=== PATIENT | male | born 1935 | race Caucasian/White ===

== ENCOUNTER 2017-04-29 20:54 | Inpatient (IN) | payer MEDICARE ==
[~2017-04-29 20:54] MED LIST: ISOVUE-370 76%-LOCM 1 ML ONE
--- OUTSIDE RECORDS SUMMARY | 2017-04-29 20:58 | XMS | Clinical Summary ---
:1935 Author Organization [facility] Address [address] [place] [address] Phone Care Team Providers Name Role Phone , Primary Care Provider Unavailable Allergies Not on File Current Medications Not on file Active Problems Not on file Social History Tobacco Use Types Packs/Day Years Used Date Never Assessed Sex Assigned at Date Recorded Not on file Last Filed Vital Signs Not on file Plan of Treatment Not on file Results Not on filefrom Last 3 Months
[2017-04-29] MEDS ORDERED: Milk Of Magnesia 30 ML UDCUP ONE (22:25)
[2017-04-29] MEDS ORDERED: Lidocaine Viscous Sol 2% 15 ml UD Cup ONE (22:25)
--- NOTE | 2017-04-29 23:40 | CT ---
ABDOMEN CT WITH CONTRAST PELVIC CT WITH CONTRAST: Comparison: 10-05-16 History: Nausea, vomiting, diarrhea. Technique: Abdomen and pelvic CT is performed with IV contrast. Enteric contrast was not administere d. Coronal reformatted images are submitted for interpretation. FINDINGS: Abdomen CT: Lung bases are clear. Heart size is within normal limits. Coronary calcifications are identified. Th e descending thoracic aorta and abdominal aorta have an overall normal caliber. No specific periaort ic fat stranding. Circumflex left renal vein is noted. Intra and extrahepatic portal vein is patent. 8 mm hypodensity in the liver, too small to characterize. The spleen and pancreas have appropriate e nhancement. 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 There appears to be a nodule associated with the medial limb of the right adrenal gland measuring 1.3 cm. Attenuation coefficien t on the previous CT suggests a benign adenoma. There is persistent fullness of the left adrenal gla nd. Stable complex cyst emanating from the upper pole of the left kidney. Additional smaller left an d right parenchymal hypodensities are noted. There are nonobstructing calcifications in the left randy al pelvis. Bilaterally, no hydronephrosis or significant perinephric fat stranding. Bilaterally, ure ters have a normal caliber. No hydroureter, periatrial fat stranding or ureterolithiasis. There is stranding of the central abdominal mesentery at the level of the third portion and fourth p ortion of the duodenum. There are some mildly prominent adjacent lymph nodes. There is mucosal thick ening involving the third and fourth portion of the duodenum as well as proximal jejunal loops. Ther e are adjacent mildly enlarged lymph nodes, presumed to be reacdtive. A focal enteritis is suspected . No evidence of abscess or perforation. Mid to distal small bowel loops are unremarkable. Ileocecal junction is normal. Normal caliber appendix. Scattered fecal material in a nondistended, nondilated colon. Occasional diverticulum. No diverticulitis. There are nonspecific right periaortic and aortocaval lymph nodes. There appears to be possible sludge and stones in the dependent portion of the gallbladder. No evide nce of cholecystitis. Pelvic CT: Urinary bladder is unremarkable. No pelvic mass, lymphadenopathy, free air or free fluid. Evaluation is limited by beam attenuation artifact due to right hip arthroplasty. There are no osteoblastic or osteolytic lesions. IMPRESSION: 1. Mucosal prominence and adjacent mesenteric inflammation involving the third and fourth portion of the duodenum as well as proximal jejunal loops. A focal enteritis is suspected. No associated obstr uction. 2. Re-demonstrating multiple renal hypodensities. 3. Right adrenal adenoma. Left adrenal hyperplasia. POS: PPP
[2017-04-30 00:26] VITALS: BMI 24.3
[2017-04-30] MEDS ORDERED: Ondansetron HCl/PF 4 MG/2 ML Vial IVP PRN ×2 (00:27→07:19)
[2017-04-30] MEDS ORDERED: Ondansetron ODT 4 MG TAB SL PRN (00:27)
[2017-04-30] MEDS ORDERED: Sodium Chloride 0.9% 1,000 ML IV SCH (00:27)
[2017-04-30] MEDS ORDERED: Mag-Al 1200 mg/1200 mg/30 ML UDCUP PO PRN (07:19)
[2017-04-30] MEDS ORDERED: Ondansetron ODT 4 MG TAB PO PRN (07:19)
[2017-04-30] MEDS ORDERED: Acetaminophen 325 MG TAB PO PRN (07:19)
[2017-04-30] MEDS ORDERED: Loperamide HCl 2 MG CAP PO PRN (07:19)
[2017-04-30] MEDS ORDERED: Milk Of Magnesia 30 ML UDCUP PO PRN (07:19)
[2017-04-30] MEDS ORDERED: Senokot 8.6 MG TAB PO PRN (07:19)
[2017-04-30] MEDS ORDERED: HYDROcodone/Acetaminophen 5/325 mg Tablet PO PRN (07:19)
[2017-04-30] MEDS ORDERED: Zolpidem Tartrate 5 MG TAB PO PRN (07:19)
[2017-04-30] MEDS ORDERED: HumaLOG 300 UNITS/3 ML VIAL SC PRN ×2 (07:23)
[2017-04-30] MEDS ORDERED: Dextrose 5% in Water 1,000 ML IV PRN (07:23)
[2017-04-30] MEDS ORDERED: hydrALAZINE 20 MG/ML VIAL SLOW IVP PRN (07:23)
[2017-04-30] MEDS ORDERED: Labetalol HCl 100 MG/20 ML VIAL SLOW IVP PRN (07:23)
[2017-04-30] MEDS ORDERED: Sodium Chloride 0.65% Nasal 44 ML BOT EA NARE PRN (07:23)
[2017-04-30] MEDS ORDERED: Dextrose 50% Abboject 50 ML SYRINGE SLOW IVP PRN (07:23)
[2017-04-30] MEDS ORDERED: Eucerin (Mineral Oil/Petrolatum,White) 30 gm Jar TOP PRN (07:23)
[2017-04-30] MEDS ORDERED: Diabetic Tussin 200 MG/10 ML UDCUP PO PRN (07:23)
[2017-04-30] MEDS ORDERED: Loratadine 10 MG TAB PO PRN (07:23)
[2017-04-30 07:42] LABS: #Lymphocytes 0.7 thou/uL (1.20-3.40); #Neutrophils 15.2 thou/uL (1.40-6.50); %Basophils 0.2 % (0.0-1.0); %Lymphocytes 3.8 % (21.0-51.0); %Monocytes 10.9 % (0.0-10.0); Hematocrit 48.5 % (42.0-52.0); Mean Platelet Volume 8.5 fL (7.4-10.4); White Blood Cell (WBC) Count 17.9 thou/uL (4.8-10.8)
[2017-04-30 08:02] LABS: ALT (SGPT) 11 U/L (8-55); AST (SGOT) 15 U/L (5-34); Alkaline Phosphatase 58 U/L (40-150); Anion Gap 13 mmol/L (10-20); BUN (Urea Nitrogen) 21 mg/dL (8.4-25.7); Bilirubin, Total 0.9 mg/dL (0.2-1.2); Calc. Creatinine Clearance 61 mL/min (70-130); Calcium 9.1 mg/dL (7.8-10.44); Carbon Dioxide 21 mmol/L (23-31); Chloride 105 mmol/L (98-107); Estimated GFR-MDRD 67; Globulin 2.9 g/dL (2.4-3.5); Protein, Total 6.3 g/dL (5.8-8.1)
[2017-04-30 08:10] LABS: Phosphorus 1.4 mg/dL (2.3-4.7)
[2017-04-30] MEDS: Sodium Chloride 0.9% 1,000 ML IV SCH ×2 (08:15→16:49)
[2017-04-30] MEDS: Enoxaparin Sodium 40 MG/0.4 ML SYRINGE SC SCH (08:17)
[2017-04-30] MEDS: Famotidine/PF 20 mg/2ml Vial SLOW IVP SCH ×2 (08:21→20:28)
[2017-04-30] MEDS ORDERED: Sodium Phosphate 30 MMOL, Admixture Fee 1 EACH in Sodium Chloride 0.9% 500 ML IVPB SCH (09:00)
[2017-04-30] MEDS ORDERED: FLU VACC TS2017-18 (>65YR) 0.5 ML SYRINGE IM ONE (09:00)
--- NOTE | 2017-04-30 14:08 | HP ---
PRIMARY CARE PHYSICIAN: Dr. Anjelica Ribeiro. REASON FOR ADMISSION: Sepsis, nausea, vomiting, diarrhea. HISTORY OF PRESENT ILLNESS: This is an 81-year-old male, who has history of coronary artery disease ; diabetes, type 2; hypertension, who initially went to [facility] with complaint of naus ea, vomiting, diarrhea. Patient reports that this is ongoing for the last 2 weeks. He recalls that , at a restaurant, when he ate eggs after that his symptoms started. He was having several times li quidy diarrhea without any pus or blood. He was having pretty much everyday basis diarrhea in varia ble numbers along with nausea and intermittent vomiting. He was feeling crampy abdominal pain. He denies any fever, but he was feeling chills. He was feeling cramps in his abdomen. He denies any U TI symptoms. He denies any recent travel or other sick exposure. The patient was trying at home di fferent measures. He was feeling that he will get better day by day, but he was not improving, rath er he was getting worse and he was becoming more and more weak, fatigued, tired, and that is why las t night he decided to go to [facility]. At [facility], patient had routine ev aluation, which showed leukocytosis. He had metabolic acidosis and hypophosphatemia. He appeared d ehydrated. He was given IV fluid, empiric antibiotic therapy, and subsequently, he was transferred to our emergency room for evaluation, and subsequently, he was admitted to medical floor. REVIEW OF SYSTEMS: The following complete review of systems was negative, unless otherwise mentione d in the HPI or below: Constitutional: Weight loss or gain, ability to conduct usual activities. Skin: Rash, itching. Eyes: Double vision, pain. ENT/Mouth: Nose bleeding, neck stiffness, pain, tenderness. Cardiovascular: Palpitations, dyspnea on exertion, orthopnea. Respiratory: Shortnes s of breath, wheezing, cough, hemoptysis, fever or night sweats. Gastrointestinal: Poor appetite, abdominal pain, heartburn, nausea, vomiting, constipation, or diarrhea. Genitourinary: Urgency, fr equency, dysuria, nocturia. Musculoskeletal: Pain, swelling. Neurologic/Psychiatric: Anxiety, de pression. Allergy/Immunologic: Skin rash, bleeding tendency. Please see my HPI for pertinent posi tives and negatives. All other review of systems reviewed and negative except as mentioned in the H PI. EMERGENCY ROOM COURSE: The patient has received Flagyl 500 mg IV, Phenergan 12.5 mg, Cipro 500 mg, IV fluid, Zofran 4 mg, Bentyl 20 mg, and another dose of Zofran and IV fluid. PAST MEDICAL HISTORY: Diabetes, type 2; hypertension; dyslipidemia; coronary artery disease; histor y of CVA; nephrolithiasis. PAST SURGICAL HISTORY: Cardiac catheterization, CABG x2, right hip replacement, benign tumor remova l from right hip area. PAST PSYCHIATRIC HISTORY: Reviewed and negative. SOCIAL HISTORY: Patient drinks alcohol 3-4 times per week. He denies any smoking. He denies any o ther illicit drug abuse. He lives at home with the family. FAMILY HISTORY: No strong family history of premature coronary artery disease, stroke, or cancer. ALLERGIES: No known drug allergies. CURRENT HOME MEDICATIONS: Imdur 60 mg p.o. daily, aspirin 81 mg p.o. daily, Plavix 75 mg p.o. daily , glipizide 5 mg p.o. daily, and metoprolol 25 mg p.o. daily. PHYSICAL EXAMINATION: VITAL SIGNS: On arrival, blood pressure 131/65, pulse 81, respiratory rate 22, temperature 97.5, sa turation 96% on room air, weight 72.5 kilograms. GENERAL: Patient is currently alert, awake, in no acute distress. HEENT: Head: Normocephalic, atraumatic. Eyes: Pupils round and reactive to light. Extraocular m uscle intact. ENT: Oropharynx within normal limits, somewhat dry-appearing mucous membranes. No o ral lesions. No pharyngeal erythema, no exudates. NECK: Supple, no JVD, no thyromegaly, no meningeal signs of irritation. LUNGS: Clear to auscultation without any rhonchi or rales. CARDIAC: S1, S2 regular without any murmur. ABDOMEN: Patient has vague lower abdominal discomfort, no peritoneal sign, no Hare's sign, no org anomegaly, no mass, no suprapubic tenderness. BACK EXAMINATION: Unremarkable, no CVA tenderness. EXTREMITIES: Upper extremities, passive movement of all joints are normal. Lower extremities, no e cynthia. Good peripheral pulsation. SKIN: No skin rash. HEMATOLOGICAL SYSTEM: No lymphadenopathy. PSYCHIATRIC: Normal affect. SIGNIFICANT LABORATORY DATA: CT abdomen and pelvis done at [facility] last night, which showed mucosal prominence and adjacent dysenteric inflammation of the third and fourth portion of th e duodenum as well as proximal jejunal loops. Enteritis is suspected, right adrenal adenoma and lef t adrenal hyperplasia, renal hypodensity. CBC: WBC 21.2, hemoglobin 17.4, platelets 230 with a lef t shift. BMP: Sodium 133, potassium 3.9, chloride 102, carbon dioxide 14, anion gap 21, BUN 27, cr eatinine 1.118, glucose 165, calcium 10.2. LFT: AST 16, ALT 10, alkaline phosphatase 76, albumin 4 .0, phosphorous 1.7, magnesium 1.7. ASSESSMENT AND PLAN: 1. Sepsis, most likely related with underlying gastroenteritis, presumed infection. Currently, WBC count is improving. The patient is on broad-spectrum antibiotic therapy with Levaquin and Flagyl. Patient is also on IV fluid. We will follow up on culture result. We will monitor closely in hosp ital. 2. Gastroenteritis, presumed infectious. This patient has a 2-week history of gastroenteritis, sta rted after egg. At this point, I will send ova and parasite, culture for Campylobacter as well as C lostridium difficile. The patient will be given broad-spectrum antibiotic therapy with Levaquin and Flagyl, Florastor 250 mg, and patient will be given IV fluid. We will continue with Pepcid 20 mg I V b.i.d. and Zofran p.r.n. basis. 3. Abnormal electrolytes, hypokalemia and hypophosphatemia. The patient will be given sodium phosp hate 30 mmol. At this point, his potassium is already improved. We will monitor electrolytes. 4. Coronary artery disease. We will continue aspirin 81 mg p.o. daily, Plavix 75 mg p.o. daily, Im dur 60 mg p.o. daily, and metoprolol 25 mg p.o. daily if blood pressure permits. 5. Diabetes, type 2. We will provide diabetic diet and insulin as per sliding scale per protocol. Diabetic diet will be given. 6. Metabolic acidosis, likely due to the diarrhea and underlying sepsis. 7. Deep vein thrombosis prophylaxis. Lovenox 40 mg subcutaneously daily. 8. Gastrointestinal prophylaxis. Pepcid 20 mg IV b.i.d. 9. Code status: The patient is FULL CODE. Patient does not have any surrogate decision maker. Disposition plan based on clinical course, we are expecting patient's stay in the hospital more than 2 midnights. Plan of care discussed with the patient in detail.
[2017-04-30] MEDS: metroNIDAZOLE 500 MG in Premix Bag 1 BAG IVPB SCH ×2 (15:02→20:29)
[2017-05-01] MEDS: Sodium Chloride 0.9% 1,000 ML IV SCH ×3 (05:31→19:30)
[2017-05-01] MEDS: metroNIDAZOLE 500 MG in Premix Bag 1 BAG IVPB SCH (05:33)
[2017-05-01 05:40] LABS: #Eosinphils 0.1 thou/uL (0.0-0.7); #Lymphocytes 1.1 thou/uL (1.20-3.40); #Monocytes 1.1 thou/uL (0.11-0.59); %Basophils 0.3 % (0.0-1.0); %Eosinophils 1.1 % (0.0-10.0); %Lymphocytes 9.4 % (21.0-51.0); %Monocytes 9.7 % (0.0-10.0); Hematocrit 39.4 % (42.0-52.0); Mean Platelet Volume 9.4 fL (7.4-10.4); Red Blood Cell (RBC) Count 4.35 mill/uL (4.70-6.10); White Blood Cell (WBC) Count 11.3 thou/uL (4.8-10.8)
[2017-05-01 05:58] LABS: ALT (SGPT) 10 U/L (8-55); AST (SGOT) 11 U/L (5-34); Alkaline Phosphatase 56 U/L (40-150); Anion Gap 9 mmol/L (10-20); BUN (Urea Nitrogen) 15 mg/dL (8.4-25.7); Bilirubin, Total 0.8 mg/dL (0.2-1.2); Calc. Creatinine Clearance 70 mL/min (70-130); Calcium 8.3 mg/dL (7.8-10.44); Carbon Dioxide 22 mmol/L (23-31); Chloride 110 mmol/L (98-107); Estimated GFR-MDRD 79; Globulin 2.5 g/dL (2.4-3.5); Protein, Total 5.4 g/dL (5.8-8.1)
[2017-05-01 06:00] LABS: Phosphorus 1.5 mg/dL (2.3-4.7)
[2017-05-01] MEDS ORDERED: Potassium Phosphate 30 MMOL in Sodium Chloride 0.9% 500 ML IVPB SCH (08:00)
[2017-05-01] MEDS: Metoprolol Tartrate 25 MG TAB PER TUBE SCH (08:37)
[2017-05-01] MEDS: Saccharomyces boulardii 250 MG CAP PO SCH (08:37)
[2017-05-01] MEDS: Clopidogrel Bisulfate 75 MG TAB PO SCH (08:38)
[2017-05-01] MEDS: Enoxaparin Sodium 40 MG/0.4 ML SYRINGE SC SCH (08:39)
[2017-05-01] MEDS: Famotidine 20 MG TAB PO SCH ×2 (08:44→19:37)
--- NOTE | 2017-05-01 13:39 | PDOC.PN ---
- Subjective Encounter Start Date: 05/01/17 Encounter Start Time: 09:50 -: old records requested/rev pt has less diarrhoea, no nausea and vomiting, feels better, no fever - Objective Resuscitation Status: Resuscitation Status FULL:Full Resuscitation MAR Reviewed: Yes Vital Signs & Weight: Vital Signs (12 hours) Temp Pulse Resp BP Pulse Ox 05/01/17 12:00 97.3 F L 74 18 107/67 96 05/01/17 08:00 98.6 F 70 18 111/66 98 Weight Admit Weight 169 lb 12.095 oz Weight 169 lb 12.095 oz I&O: 04/30/17 05/01/17 05/02/17 06:59 06:59 06:59 Intake Total 4310 Balance 4310 Result Diagrams: 05/01/17 04:29 05/01/17 04:29 Additional Labs: Accuchecks 05/01/17 05/01/17 04/30/17 11:44 04:25 20:17 POC Glucose 120 H 95 96 04/30/17 16:53 POC Glucose 108 Phys Exam - Physical Examination Constitutional: NAD HEENT: PERRLA, moist MMs, sclera anicteric Neck: no JVD, supple Respiratory: no wheezing, no rales, no rhonchi Cardiovascular: RRR, no significant murmur, no rub Gastrointestinal: soft, non-tender, no distention, positive bowel sounds Musculoskeletal: no edema, pulses present Neurological: non-focal, normal sensation, moves all 4 limbs Lymphatic: no nodes Psychiatric: normal affect, A&O x 3 Skin: no rash, normal turgor Dx/Plan (1) Cryptosporidial gastroenteritis Code(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 - CRYPTOSPORIDIOSIS Status: Acute (2) Hypokalemia Code(s): E87.6 - HYPOKALEMIA Status: Acute (3) Hypophosphatemia Code(s): E83.39 - OTHER DISORDERS OF PHOSPHORUS METABOLISM Status: Acute (4) Sepsis Code(s): A41.9 - SEPSIS, UNSPECIFIED ORGANISM Status: Acute (5) CAD (coronary artery disease) Code(s): I25.10 - ATHSCL HEART DISEASE OF [place] CORONARY ARTERY W/O ANG PCTRS Status: Chronic (6) Diabetes type 2, controlled Code(s): E11.9 - TYPE 2 DIABETES MELLITUS WITHOUT COMPLICATIONS Status: Chronic (7) Dyslipidemia Code(s): E78.5 - HYPERLIPIDEMIA, UNSPECIFIED Status: Chronic (8) Hypertension Code(s): I10 - ESSENTIAL (PRIMARY) HYPERTENSION Status: Chronic - Plan cont current plan of care, plan discussed w/ family, continue antibiotics * replace potassium phosphate * dc levaquin and flagyl * add nitazoxanide * medication reviewed as below * symptomatic treatment * heplock IV after current bag * expecting discharge tomorrow. Review of Systems - Review of Systems Eyes: negative: Pain, Vision Change, Conjunctivae Inflammation, Eyelid Inflammation, Redness, Other ENT: negative: Ear Pain, Ear Discharge, Nose Pain, Nose Discharge, Nose Congestion, Mouth Pain, Mouth Swelling, Throat Pain, Throat Swelling, Other Respiratory: negative: Cough, Dry, Shortness of Breath, Hemoptysis, SOB with Excertion, Pleuritic Pain, Sputum, Wheezing Cardiovascular: negative: Chest Pain, Palpitations, Orthopnea, Paroxysmal Noc. Dyspnea, Edema, Light Headedness, Other Gastrointestinal: negative: Nausea, Vomiting, Abdominal Pain, Diarrhea, Constipation, Melena, Hematochezia, Other Genitourinary: negative: Dysuria, Frequency, Incontinence, Hematuria, Retention , Other Musculoskeletal: negative: Neck Pain, Shoulder Pain, Arm Pain, Back Pain, Hand Pain, Leg Pain, Foot Pain, Other Skin: negative: Rash, Lesions, Giovani, Bruising, Other - Medications/Allergies Allergies/Adverse Reactions: Allergies Allergy/AdvReac Type Severity Reaction Status Date / Time No Known Drug Allergies Allergy Verified 04/30/17 00:12 Medications: Current Medications Acetaminophen (Tylenol) 650 mg PO Q4H PRN PRN Reason: Headache/Fever or Pain Hydrocodone Bitart/Acetaminophen ([place] 5/325) 1 tab PO Q4H PRN PRN Reason: Moderate Pain (4-6) Al Hydroxide/Mg Hydroxide (Maalox) 30 ml PO Q6H PRN PRN Reason: Heartburn or Indigestion Aspirin (Aspirin Chewable) 81 mg PO DAILY [facility] Last Admin: 05/01/17 08:37 Dose: 81 mg Clopidogrel Bisulfate (Plavix) 75 mg PO DAILY [facility] Last Admin: 05/01/17 08:38 Dose: 75 mg Dextrose/Water (Dextrose 50%) 25 gm SLOW IVP PRN PRN PRN Reason: Hypoglycemia Dicyclomine HCl (Bentyl) 10 mg IM QID PRN PRN Reason: GI Cramping Enoxaparin Sodium (Lovenox) 40 mg SC 0900 [facility] Last Admin: 05/01/17 08:39 Dose: 40 mg Famotidine (Pepcid) 20 mg PO BID [facility] Last Admin: 05/01/17 08:44 Dose: 20 mg Glipizide (Glucotrol Xl) 5 mg PO DAILY [facility] Last Admin: 05/01/17 08:38 Dose: 5 mg Glucagon (Glucagon) 1 mg IM PRN PRN PRN Reason: Hypoglycemia Guaifenesin (Robitussin Sf) 200 mg PO Q4H PRN PRN Reason: Cough Hydralazine HCl (Apresoline) 10 mg SLOW IVP Q4H PRN PRN Reason: Systolic BP > 180 Dextrose/Water (D5w) 1,000 mls @ 0 mls/hr IV .Q0M PRN; As Directed PRN Reason: Hypoglycemia Sodium Chloride (Normal Saline 0.9%) 1,000 mls @ 100 mls/hr IV .Q10H [facility] Last Admin: 05/01/17 08:36 Dose: 1,000 mls Potassium Phosphate 30 mmol/ (Sodium Chloride) 510 mls @ 83.3 mls/hr IVPB 0800 [facility] Stop: 05/01/17 14:08 Last Admin: 05/01/17 08:32 Dose: 510 mls Insulin Human Lispro (Humalog) 0 units SC .MODERATE SLIDING SC PRN PRN Reason: Moderate Correctional Scale Insulin Human Lispro (Humalog) 0 units SC .BEDTIME SLIDING SC PRN PRN Reason: Bedtime Correctional Scale Isosorbide Mononitrate (Imdur) 60 mg PO DAILY [facility] Last Admin: 05/01/17 08:39 Dose: Not Given Labetalol HCl (Normodyne) 20 mg SLOW IVP Q4H PRN PRN Reason: Systolic BP > 180 Loperamide HCl (Imodium) 2 mg PO PRN PRN PRN Reason: Diarrhea/Loose Stools Loratadine (Claritin) 10 mg PO DAILYPRN PRN PRN Reason: Sinus Symptoms Magnesium Hydroxide (Milk Of Magnesium) 30 ml PO DAILYPRN PRN PRN Reason: Constipation Metoprolol Tartrate (Lopressor) 25 mg PER TUBE DAILY [facility] Last Admin: 05/01/17 08:37 Dose: 25 mg Mineral Oil/White Petrolatum (Eucerin Cream) 0 gm TOP BIDPRN PRN PRN Reason: Dry Skin Nitazoxanide (Alinia) 500 mg PO BID [facility] Last Admin: 05/01/17 08:44 Dose: 500 mg Ondansetron HCl (Zofran Odt) 4 mg PO Q6H PRN PRN Reason: Nausea/Vomiting Ondansetron HCl (Zofran) 4 mg IVP Q6H PRN PRN Reason: Nausea/Vomiting Last Admin: 04/30/17 08:20 Dose: 4 mg Saccharomyces Boulardii (Florastor) 250 mg PO DAILY [facility] Last Admin: 05/01/17 08:37 Dose: 250 mg Senna (Senokot) 2 tab PO HSPRN PRN PRN Reason: Constipation Sodium Chloride ([place] Nasal [place] 0.65%) 0 ml EA NARE QIDPRN PRN PRN Reason: Nasal Congestion Sodium Chloride (Flush - Normal Saline) 10 ml IVF Q12HR [facility] Last Admin: 05/01/17 08:39 Dose: 10 ml Sodium Chloride (Flush - Normal Saline) 10 ml IVF PRN PRN PRN Reason: Saline Flush Zolpidem Tartrate (Ambien) 5 mg PO HSPRN PRN PRN Reason: Insomnia
[2017-05-02 05:18] LABS: #Eosinphils 0.2 thou/uL (0.0-0.7); #Lymphocytes 1.1 thou/uL (1.20-3.40); #Neutrophils 7.2 thou/uL (1.40-6.50); %Basophils 0.3 % (0.0-1.0); %Eosinophils 2.6 % (0.0-10.0); %Lymphocytes 11.6 % (21.0-51.0); %Monocytes 10.5 % (0.0-10.0); Hematocrit 37.5 % (42.0-52.0); Mean Platelet Volume 9.9 fL (7.4-10.4); Red Blood Cell (RBC) Count 4.06 mill/uL (4.70-6.10); White Blood Cell (WBC) Count 9.6 thou/uL (4.8-10.8)
[2017-05-02 05:50] LABS: Anion Gap 10 mmol/L (10-20); BUN (Urea Nitrogen) 12 mg/dL (8.4-25.7); Calc. Creatinine Clearance 62 mL/min (70-130); Calcium 8.5 mg/dL (7.8-10.44); Carbon Dioxide 25 mmol/L (23-31); Chloride 107 mmol/L (98-107); Estimated GFR-MDRD 69; Phosphorus 2.5 mg/dL (2.3-4.7)
[2017-05-02] MEDS: Clopidogrel Bisulfate 75 MG TAB PO SCH (09:30)
[2017-05-02] MEDS: Saccharomyces boulardii 250 MG CAP PO SCH (09:30)
[2017-05-02] MEDS: Famotidine 20 MG TAB PO SCH (09:30)
[2017-05-02] MEDS: Enoxaparin Sodium 40 MG/0.4 ML SYRINGE SC SCH (09:32)
[2017-05-02] MEDS: Metoprolol Tartrate 25 MG TAB PER TUBE SCH (09:32)
[2017-05-02 10:08] VITALS: BP 133/72; TEMP 98.1
--- NOTE | 2017-05-02 12:27 | DIS ---
DATE OF ADMISSION: 04/29/2017 DATE OF DISCHARGE: 05/02/2017 PRIMARY CARE PHYSICIAN: Dr. Anjelica Ribeiro. DISCHARGE DISPOSITION: Home. PRIMARY DISCHARGE DIAGNOSES: 1. Sepsis. 2. Cryptosporidium gastroenteritis. 3. Abnormal electrolytes. 4. Metabolic acidosis. SECONDARY DISCHARGE DIAGNOSES: Coronary artery disease, diabetes type 2 and hypertension. PRIMARY PROCEDURE/OPERATION: None. RADIOLOGICAL INVESTIGATION: Abdomen and pelvis CT scan. SIGNIFICANT LABS: Hemoglobin 12.7. Creatinine 1.03. DISCHARGE MEDICATIONS: Nitazoxanide 500 mg p.o. b.i.d. for a total of 3 days, Florastor 250 mg p.o. daily for 5 days, aspirin 81 mg p.o. daily, Plavix 75 mg p.o. daily, Imdur 60 mg daily, metoprolol 25 mg p.o. daily, glipizide ER 5 mg p.o. daily and metformin 500 mg p.o. daily. CONTRAINDICATIONS: None. CODE STATUS: FULL CODE. INPATIENT CONSULTANTS: None. ALLERGIES: No known drug allergies. DISCHARGE PLAN: Post hospital, the patient will follow up with primary care physician in 1 week. HOSPITAL COURSE: An 81-year-old male who was admitted for gastroenteritis. Please see my HPI for f urther details. He was having diarrhea for almost 2 weeks. He did not report to any medical attent ion. He had metabolic acidosis. He was meeting sepsis criteria. He was treated with Levaquin and Flagyl and we did stool for infection workup. Subsequently, we found cryptosporidium positive and t hat is why we started treating him with nitazoxanide. While in hospital, his abnormal electrolytes were corrected. The patient is seen and examined at bedside today. PHYSICAL EXAMINATION: VITAL SIGNS: Currently, temperature 98.1, pulse 79, respiratory rate 18, saturation 96% and blood p ressure 133/72. Weight 169 pounds. GENERAL: The patient is alert, awake, no acute distress. HEAD: Normocephalic and atraumatic. LUNGS: Clear. CARDIAC: S1 and S2 regular. ABDOMEN: Soft and benign. EXTREMITIES: No edema. NEUROLOGIC: Nonfocal examination.
== END 2017-05-02 10:10 | disposition home or self-care (01) | DRG 872 ==
LOC: ERS 20:54 → T4-A 22:50
PROVIDERS: ADMIT Internal Medicine; ATTEND Internal Medicine
DX: A41.9 Sepsis, unspecified organism (principal); E87.2 Acidosis; A07.2 Cryptosporidiosis; E11.9 Type 2 diabetes mellitus without complications; E86.0 Dehydration; E83.39 Other disorders of phosphorus metabolism; A09 Infectious gastroenteritis and colitis, unspecified; I10 Essential (primary) hypertension; I25.10 Atherosclerotic heart disease of native coronary artery without angina pectoris; E78.5 Hyperlipidemia, unspecified; Z86.73 Personal history of transient ischemic attack (TIA), and cerebral infarction without residual deficits; Z95.5 Presence of coronary angioplasty implant and graft; Z95.1 Presence of aortocoronary bypass graft; Z96.641 Presence of right artificial hip joint; Z79.01 Long term (current) use of anticoagulants; Z79.82 Long term (current) use of aspirin; E87.6 Hypokalemia; Z79.84 Long term (current) use of oral hypoglycemic drugs
CPT/HCPCS: 36415; 36416; 74177; 80048; 80053; 84100; 85025; 87015; 87045; 87046; 87324; 87328; 87329; 87449; 87899; A4216; J1650; J1956; J2405; J7050; S0028

== ENCOUNTER 2018-09-02 17:45 | Inpatient (IN) | payer MEDICARE ==
[2018-09-02 18:48] LABS: #Eosinphils 0.1 thou/uL (0.0-0.7); #Lymphocytes 1.4 thou/uL (1.20-3.40); #Neutrophils 7.5 thou/uL (1.40-6.50); %Basophils 0.3 % (0.0-1.0); %Lymphocytes 13.6 % (21.0-51.0); %Monocytes 9.7 % (0.0-10.0); %Neutrophils 75.5 % (42.0-75.0); Mean Corpuscular HGB CONC 32.6 g/dL (32.0-36.0); Mean Corpuscular Hemoglobin 28.6 pg (27.0-31.0); Mean Corpuscular Volume 87.6 fL (78.0-98.0); Mean Platelet Volume 10.1 fL (7.4-10.4); Platelet Count 142 thou/uL (130-400); RBC Distribution Width 13.9 % (11.5-14.5); Red Blood Cell (RBC) Count 3.15 mill/uL (4.70-6.10); White Blood Cell (WBC) Count 9.9 thou/uL (4.8-10.8)
[2018-09-02 18:55] LABS: INR-International Normal Ratio 1.2; PTT 31.4 SEC (22.9-36.1); Prothrombin Time 15.6 SEC (12.0-14.7)
[2018-09-02] MEDS ORDERED: Pantoprazole 80 MG, Admixture Fee 1 EACH in Sodium Chloride 0.9% 100 ML IVP SCH (19:00)
[2018-09-02 19:09] LABS: ALT (SGPT) 11 U/L (8-55); AST (SGOT) 11 U/L (5-34); Albumin 3.6 g/dL (3.4-4.8); Alkaline Phosphatase 86 U/L (40-150); Anion Gap 14 mmol/L (10-20); BUN (Urea Nitrogen) 72 mg/dL (8.4-25.7); Bilirubin, Total 0.4 mg/dL (0.2-1.2); Calc. Creatinine Clearance 0 mL/min (70-130); Calcium 9.1 mg/dL (7.8-10.44); Carbon Dioxide 23 mmol/L (23-31); Chloride 107 mmol/L (98-107); Estimated GFR-MDRD 55; Globulin 2.5 g/dL (2.4-3.5); Glucose 102 mg/dL (83-110); Protein, Total 6.1 g/dL (5.8-8.1); Sodium 140 mmol/L (136-145)
[2018-09-02 19:30] LABS: CKMB 1.6 ng/mL (0-6.6)
[2018-09-02] MEDS ORDERED: Loperamide HCl 2 MG CAP PO PRN (21:10)
[2018-09-02] MEDS ORDERED: Acetaminophen 325 MG TAB PO PRN (21:13)
[2018-09-02] MEDS ORDERED: Ondansetron ODT 4 MG TAB PO PRN (21:13)
[2018-09-02 21:25] LABS: Hemoglobin 7.9 g/dL (14.0-18.0)
[2018-09-02 22:50] VITALS: BMI 23.9
[2018-09-02] MEDS ORDERED: Sodium Chloride 0.9% 1,000 ML IV SCH (23:00)
[2018-09-03] MEDS ORDERED: HumaLOG 300 UNITS/3 ML VIAL SC PRN (03:21)
[2018-09-03] MEDS ORDERED: Dextrose 50% Abboject 50 ML SYRINGE SLOW IVP PRN (03:21)
[2018-09-03] MEDS ORDERED: Dextrose 5% in Water 1,000 ML IV PRN (03:21)
[2018-09-03 03:36] LABS: #Eosinphils 0.3 thou/uL (0.0-0.7); #Lymphocytes 1.6 thou/uL (1.20-3.40); #Monocytes 0.9 thou/uL (0.11-0.59); #Neutrophils 6.1 thou/uL (1.40-6.50); %Basophils 0.5 % (0.0-1.0); %Eosinophils 3.1 % (0.0-10.0); %Monocytes 10.3 % (0.0-10.0); %Neutrophils 68.1 % (42.0-75.0); Hemoglobin 9.3 g/dL (14.0-18.0); Mean Corpuscular HGB CONC 33.4 g/dL (32.0-36.0); Mean Corpuscular Hemoglobin 29.5 pg (27.0-31.0); Mean Corpuscular Volume 88.3 fL (78.0-98.0); Platelet Count 134 thou/uL (130-400); RBC Distribution Width 13.9 % (11.5-14.5); Red Blood Cell (RBC) Count 3.15 mill/uL (4.70-6.10)
[2018-09-03 03:53] LABS: Anion Gap 13 mmol/L (10-20); BUN (Urea Nitrogen) 57 mg/dL (8.4-25.7); Calc. Creatinine Clearance 44 mL/min (70-130); Calcium 8.9 mg/dL (7.8-10.44); Carbon Dioxide 21 mmol/L (23-31); Chloride 112 mmol/L (98-107); Estimated GFR-MDRD 57; Glucose 84 mg/dL (83-110); Sodium 142 mmol/L (136-145)
--- NOTE | 2018-09-03 03:54 | HP ---
PRIMARY CARE DOCTOR: CODE STATUS: Full code. TIME OF EVALUATION: 0815 hours. CHIEF COMPLAINT: Lower GI bleed. HISTORY OF PRESENT ILLNESS: This is an 83-year-old male patient with past medical history of prostate cancer, previous TIAs, kidney stones, coronary artery disease, diabetes type 2, and hypertension who came to the hospital after noticing blood in the stool. The symptoms have been present for the past 3 days and has been getting worse with no clear triggers, no alleviating factors, the patient has some nausea and vomiting. That was brownish, but no blood in the vomit. Symptoms also were associated with some dizziness, severity [id number]. REVIEW OF SYSTEMS: CONSTITUTIONAL: No fever, chills, or generalized weakness. RESPIRATORY: No cough, sputum production, or shortness of breath. CARDIOVASCULAR: No chest pain or palpitation. GASTROINTESTINAL: The patient has nausea, vomiting, and blood per rectum. PREBOARDER: No dizziness or feeling of headache or feeling lightheaded. GENITOURINARY: No burning on urination. EXTREMITIES: No leg swelling. All other systems were reviewed and negative except for the findings mentioned above. PAST MEDICAL HISTORY: As mentioned in the HPI. PAST SURGICAL HISTORY: The patient has distended the right groin for heart blockage, triple bypass, right hip replacement, tumor removal from right hip. PSYCH HISTORY: No previous psych history. SOCIAL HISTORY: No drug use. Former tobacco user. smokes cigarettes, lives at home. Drinks everyday 4-5 times per week. FAMILY HISTORY: Reviewed and noncontributory to current presentation. KNOWN ALLERGIES: No known drug allergies reported. MEDICATIONS: 1. Isosorbide mononitrate. 2. Amlodipine. 3. Aspirin 81. 4. Metoprolol. 5. Glipizide. PHYSICAL EXAMINATION: VITAL SIGNS: On presentation, blood pressure 106/48 with heart rate 85, respiratory rate was 16, temperature 98.5, pain is 2/10, oxygen saturation 97% on room air. GENERAL APPEARANCE: The patient is alert, oriented, not in acute distress. HEENT: Eyes normal. ENT, moist oral mucosa. Anicteric. No JVD. RESPIRATORY: Bilateral air entry. No rales or wheezes. Symmetric expansion. CARDIOVASCULAR: Normal rate, regular rhythm. No murmurs. No gallop. No edema. ABDOMEN: Soft. Normal bowel sounds. MUSCULOSKELETAL: Baseline range of motion and strength. No tenderness. SKIN: Warm, intact. No pallor. No rash. No redness. Peripheral pulses are present. Capillary refill seems to be intact. NEURO: No evidence of any new focal weakness. Baseline speech. Cranial nerves seems to be intact. PSYCH: The patient is in good mood. No anxiety. Optimal judgment. IMAGING STUDIES: EKG was reviewed. The patient has normal sinus rhythm with a rate of 85. OR 188, QRS 146, QT corrected 511, RBBB, minimum voltage criteria for LVH. CT scan was reviewed, no acute abnormality was found. LABORATORY DATA: Reviewed. The patient has white count of 9.9, hemoglobin 9.0. Second hemoglobin 7.9. Coagulation; PT 15, INR 1.2, PTT 31.4. Chemistries: Sodium 140, potassium 4.0, chloride 107 carbon dioxide 23, anion gap 14, BUN 72, creatinine 1.26, GFR 55, glucose 102, calcium 9.1, total bilirubin 0.4. LFTs were negative. Troponin is 0.032. Serum total protein 6.1, albumin 3.6, globulin 2.5, albumin to globulin ratio is 1.4. ASSESSMENT AND PLAN: The patient is in the hospital for the following medical problems: 1. Gastrointestinal bleeding. We will monitor hemoglobin, we will hydrate and transfuse as needed. The patient is being kept n.p.o. We will consult Gastroenterology. We will follow recommendations. Continue Protonix. 2. Indeterminate troponin. This is likely a [id number] myocardial infarction type 2. We will trend troponins and we will treat accordingly. 3. Coronary artery disease: This is chronic, seems to be stable, mildly elevated troponin. This seems to be related to acute coronary syndrome, reconcile home medications. We will adjust treatment as needed. due to GI bleeding. We will reassess after Gastroenterology evaluation. 4. Uncontrolled diabetes, reconcile home medications, we will place the patient on sliding scale for optimal control. 5. High cholesterol, low-cholesterol diet is advised, reconcile home medications. 6. Control hypertension, reconcile home medications. Adjust treatment accordingly. 7. Prophylaxis. The patient with gastrointestinal bleeding, unable to give Lovenox. Job ID: [id number]
[2018-09-03 04:00] LABS: Troponin I 0.257 ng/mL (< 0.028)
[2018-09-03 06:08] LABS: Hemoglobin 9.3 g/dL (14.0-18.0); Platelet Count 130 thou/uL (130-400)
[2018-09-03] MEDS ORDERED: Aspirin Chewable 81 MG TAB PO SCH (09:00)
[2018-09-03] MEDS ORDERED: Amlodipine 10 MG TAB PO SCH (09:00)
[2018-09-03] MEDS ORDERED: Enoxaparin Sodium 40 MG/0.4 ML SYRINGE SC SCH (09:00)
[2018-09-03] MEDS ORDERED: Clopidogrel Bisulfate 75 MG TAB PO SCH (09:00)
[2018-09-03 09:57] LABS: Hemoglobin 9.1 g/dL (14.0-18.0)
[2018-09-03] MEDS ORDERED: Dextrose 5 %-0.45 % NaCl 1,000 ML IV SCH (10:15)
[2018-09-03] MEDS ORDERED: Pantoprazole 40 MG VIAL IVP SCH (10:30)
[2018-09-03] MEDS: Sodium Chloride 0.9% (PF) 10 ML VIAL FS PRN ×2 (11:44→21:04)
[2018-09-03] MEDS: Dextrose 5 %-0.45 % NaCl 1,000 ML IV SCH (11:45)
--- NOTE | 2018-09-03 12:05 | PRG ---
DATE OF SERVICE: 09/03/2018 SUBJECTIVE: The patient denies any new complaints at this time. He did not have any melena or hematochezia last night. No bowel movement since yesterday. He denies any nausea, vomiting, or abdominal discomfort. No chest pain, shortness of breath, or palpitations reported. OBJECTIVE: VITAL SIGNS: Temperature 98.2, pulse rate of 84, blood pressure 107/59, respirations of 16, O2 saturation 97% on room air. GENERAL: An 83-year-old male, in no apparent distress. Denies any chest pain, shortness of breath, or palpitations. HEENT: Head; atraumatic, normocephalic. Sclerae anicteric. Moist mucous membranes. No oral lesion. NECK: Supple. No JVD. No carotid bruit. LUNGS: Clear to auscultation bilaterally. No wheezing, rales, or rhonchi. No accessory muscle use. HEART: S1 and S2 present. Regular rate and rhythm. No heaves or pulsation. Healed midline scar from previous CABG. ABDOMEN: Soft, nontender. No guarding or rigidity. No costovertebral angle tenderness. EXTREMITIES: No edema or calf tenderness. NEUROLOGIC: Grossly nonfocal. PSYCHIATRIC: Normal affect. Alert, awake, and oriented x3. LABORATORY DATA: WBC 9.0 with hemoglobin 9.1. Hemoglobin last night was 7.9. His baseline hemoglobin is between 11 to 12. INR was 1.2. Troponin was 0.257. BUN 72, creatinine 1.26, sodium 142, potassium 4. CT scan of the abdomen and pelvis; by my review, negative for acute findings. Telemetry monitoring; by my review, showed sinus rhythm. IMPRESSION: 1. Gastrointestinal bleeding, probably secondary to peptic ulcer disease. 2. Acute blood loss anemia, status post 1 unit of PRBC. 3. Coronary artery disease, status post coronary artery bypass graft and stent placement, on aspirin and Plavix. 4. Diabetes mellitus, type 2. 5. Hypertension. 6. Hyperlipidemia. 7. History of transient ischemic attack. 8. History of renal calculi and cyst. 9. Chronic low back pain. 10. History of orthostatic hypotension. 11. Physical deconditioning. 12. Chronic kidney disease, stage 3. 13. Elevated troponin secondary to demand ischemia from anemia (type 2 non-ST elevation myocardial infarction). PLAN: The patient will be monitored on the telemetry unit. We will start him on IV fluids. Continue IV PPI. We will check orthostatic vitals. We will hold metoprolol and isosorbide mononitrate. Aspirin and Plavix are currently on hold. At this time, the patient is refusing endoscopy. We will start him on clear-liquid diet. Gastroenterology Team has been consulted. We will recheck H and H later today and in a.m. I discussed with the patient's primary manager psychology, Dr. Tk Claros, in [place], [place]. Dr. Claros recommended to discontinue Plavix permanently. He can continue aspirin on a daily basis once cleared by GI per Dr. Claros. We will recheck troponins later today. Physical Therapy will be consulted. We will consult transplant case manager for home health care evaluation since he lives alone. Plan of care was discussed with the patient in detail. He stated understanding. Job ID: [id number]
[2018-09-03 16:15] LABS: Hemoglobin 9.5 g/dL (14.0-18.0)
--- NOTE | 2018-09-03 17:18 | CON ---
DATE OF CONSULTATION: 09/03/2018 REASON FOR CONSULTATION: GI bleeding. HISTORY OF PRESENT ILLNESS: Lalit Pelletier is a very pleasant 83-year-old man, who was admitted to the hospital overnight with complaint of melena over the past couple of days. He has a history significant for coronary artery disease with prior CABG and stent placement and has been on aspirin and Plavix. He also has arthritis and will take Celebrex occasionally. He also has a history of prostate cancer. He says he has never undergone EGD or colonoscopy. He has no chronic gastrointestinal symptoms. It appears his baseline hemoglobin is 12 to 14 at least as of August of this year. He says that a couple of days ago, he started having very dark stools. These were loose and quite large in volume. He had 3 or 4 these stools over the past couple of days. He got acutely nauseated and have 1 episode of nonbloody emesis. He started to feel a little bit of dizziness and that prompted his presentation. He has been hemodynamically stable. His hemoglobin was found to be 9.0, which is a significant decline from his baseline and this dropped overnight to 7.9. He has received 1 unit of RBC transfusion and hemoglobin is back up to 9.1. He has actually not had any further bowel movements. Since his arrival here last night, he has remained hemodynamically stable. BUN was elevated to 72 upon admission and is now down to 57. He denies any abdominal pain or any ongoing nausea. He has been on IV Protonix since admission. He has refused any endoscopic investigation and is tolerating his liquid diet. REVIEW OF SYSTEMS: Full review of systems including constitutional, head, eyes, ears, nose, throat, GI, , cardiovascular, respiratory, musculoskeletal, and neurologic systems are negative except as noted in the HPI. PAST MEDICAL HISTORY: Coronary artery disease, coronary artery bypass graft, coronary stent, kidney stones, prostate cancer, TIA, hypertension, and diabetes. ALLERGIES: NO KNOWN DRUG ALLERGIES. OUTPATIENT MEDICATIONS: 1. Isosorbide mononitrate. 2. Amlodipine. 3. Metoprolol. 4. Glipizide. 5. Aspirin 81 mg daily. 6. Plavix 75 mg daily. 7. Celebrex p.r.n. SOCIAL HISTORY: The patient lives in [place]. He is a former smoker. He drinks alcohol most days. FAMILY HISTORY: Noncontributory. PHYSICAL EXAMINATION: VITAL SIGNS: Temperature 96.7, pulse 86, blood pressure 101/53, and 97% oxygen saturation on room air. GENERAL: No acute distress. HEART: Regular rate and rhythm. LUNGS: Clear to auscultation bilaterally. ABDOMEN: Bowel sounds present. Soft and nontender to palpation. EXTREMITIES: No peripheral edema. VESSELS: Radial pulses 2+ bilaterally NEUROLOGIC: Cranial nerves 2 to 12 intact bilaterally. No focal deficits. SKIN: No jaundice. No rashes were palpable. EYES: No scleral icterus. Extraocular movements intact. ENT mucous membranes moist. No oral lesions. LYMPH: No submandibular or supraclavicular lymphadenopathy. THYROID: Nontender to palpation. LABORATORY STUDIES: Admission hemoglobin was 9.0, this declined to 7.9, after 1 unit of RBC transfusion it is back up to 9.1. WBC 9.0, platelets 130. INR 1.2. BUN was 72 with creatinine 1.26 on admission, now BUN is down to 57 with creatinine 1.22. Troponin is elevated to 0.257. LFTs normal. IMAGING STUDIES: CT of the abdomen and pelvis performed yesterday shows no acute inflammatory process. No evidence of diverticulitis. No bowel dilation. 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 ASSESSMENT AND PLAN: 1. Melena. 2. Acute blood loss anemia. The patient's presentation seems most consistent with acute upper gastrointestinal bleeding over the past few days. This does appear to have slowed down since admission. He has not had any further melena output since arrival. He has responded okay to 1 unit of RBC transfusion and is on IV Protonix appropriately. I discussed with the patient that upper endoscopy is certainly indicated to evaluate for the bleeding source that we can risk stratify him and know exactly how to treat this. The patient expresses understanding, but firmly declines any endoscopic investigation. We discussed the risks either way. He does not undergo the procedure. There is a possibility of missing significant pathology that might have benefitted from earlier intervention. I feel that this does outweigh the procedural risk of endoscopy, but the patient still declines. I would respect this decision. In this case, we will need to treat empirically for suspected peptic ulcer disease. He was already on IV PPI every 12 hours, and I would continue that while here. Upon discharge, transition him to twice daily PPI for 2 months, then once daily dosing thereafter. He is going to need to stop nonsteroidal anti-inflammatory drugs and I also asked him to avoid alcohol. The decision has already been made consultation with his environmental manager to discontinue Plavix, but aspirin could be restarted on discharge. For now, trend the H and H tomorrow and evaluate for any recurrence of melena. If melena does recur, hemoglobin continues to drop, we are going to have to again discuss possible upper endoscopy. For now, okay to advance his diet. Thank you for the consultation. Please call anytime with questions or concerns. Job ID: [id number]
[2018-09-03] MEDS: Pantoprazole 40 MG VIAL IVP SCH (21:04)
[2018-09-04 06:11] LABS: Hemoglobin 8.9 g/dL (14.0-18.0)
[2018-09-04] MEDS: Dextrose 5 %-0.45 % NaCl 1,000 ML IV SCH ×2 (06:20→07:59)
[2018-09-04 06:30] LABS: ALT (SGPT) 10 U/L (8-55); AST (SGOT) 19 U/L (5-34); Albumin 3.3 g/dL (3.4-4.8); Alkaline Phosphatase 87 U/L (40-150); Anion Gap 10 mmol/L (10-20); BUN (Urea Nitrogen) 29 mg/dL (8.4-25.7); Bilirubin, Total 0.7 mg/dL (0.2-1.2); Calc. Creatinine Clearance 45 mL/min (70-130); Carbon Dioxide 24 mmol/L (23-31); Chloride 110 mmol/L (98-107); Estimated GFR-MDRD 58; Globulin 2.7 g/dL (2.4-3.5); Glucose 120 mg/dL (83-110); Magnesium 1.8 mg/dL (1.6-2.6); Potassium 4.4 mmol/L (3.5-5.1); Sodium 140 mmol/L (136-145)
[2018-09-04 06:54] LABS: CKMB 6.5 ng/mL (0-6.6)
[2018-09-04] MEDS: Pantoprazole 40 MG VIAL IVP SCH ×2 (08:06→22:00)
[2018-09-04] MEDS: Aspirin 81 mg Enteric Coated Tablet PO SCH (08:06)
[2018-09-04] MEDS: Multivit, Therapeutic 1 TAB PO SCH (08:06)
[2018-09-04] MEDS: Folic Acid 1 MG TAB PO SCH (08:06)
[2018-09-04] MEDS ORDERED: Metoprolol Tartrate 25 MG TAB PO SCH (10:15)
[2018-09-04 14:15] LABS: Hemoglobin 9.2 g/dL (14.0-18.0)
[2018-09-04] MEDS ORDERED: Furosemide 20 MG/2 ML VIAL SLOW IVP SCH (17:00)
--- NOTE | 2018-09-04 17:09 | EKG ---
Test Reason : Blood Pressure : / mmHG Vent. Rate : 085 BPM Atrial Rate : 085 BPM P-R Int : 184 ms QRS Dur : 136 ms QT Int : 430 ms P-R-T Axes : 270 -47 116 degrees QTc Int : 511 ms Unusual P axis, possible ectopic atrial rhythm Left axis deviation Right bundle branch block Moderate voltage criteria for LVH, may be normal variant Abnormal ECG Confirmed by JULIA COOLEY ([id number]) on 09/04/2018 5:09:04 PM Referred By: PAULINE Confirmed By:JULIA COOLEY
[2018-09-04] MEDS ORDERED: glipiZIDE 5 MG TAB PO SCH (17:15)
--- NOTE | 2018-09-04 17:32 | CON ---
DATE OF CONSULTATION: 09/04/2018 REASON FOR CONSULTATION: Non-STEMI. HISTORY OF PRESENT ILLNESS: Mr. Pelletier is a pleasant 83-year-old white gentleman, who comes to the hospital for GI bleed. He had noticed blood in his stools, so he decided to come in. Initially, his hemoglobin was down to 7.9, so he was given 2 units of blood, and he went up to 9.3. He has been staying steady in the 9.1 to 9.5 range since. He has a significant history of ischemic cardiomyopathy. He has had bypass in the past. He used to see his machine assembler up in [place], but he moved to this area two years ago. As of lately, he has been driving all the way up there to see him. His last heart catheterization was in July of this year, just two months ago, at which point he was told he had diffuse disease. There was nothing to do. He did have a stent placed about over a year ago, and he has been on Plavix ever since. He denies any chest pain, tightness, or pressure. No shortness of breath. PAST MEDICAL HISTORY: 1. Ischemic cardiomyopathy. 2. Coronary artery disease, status post bypass. 3. Prostate cancer. 4. Previous TIAs. 5. Kidney stones. 6. Type 2 diabetes. 7. Hypertension. PAST SURGICAL HISTORY: 1. CABG x3. 2. Right hip replacement. 3. Right hip tumor removal. SOCIAL HISTORY: Former tobacco user. Drinks about 4 to 5 days a week, suggests moderate alcohol consumption. No drug use. FAMILY HISTORY: Noncontributory. OUTPATIENT MEDICATIONS: Include: 1. Glipizide 2.5 mg a day. 2. Imdur 30 mg a day. 3. Tylenol regular strength. 4. Plavix 75 mg a day. 5. Calcium. 6. Aspirin 81 a day. 7. Amlodipine 10 mg a day. 8. Metoprolol succinate 12.5 mg a day. ALLERGIES: NO KNOWN DRUG ALLERGIES. REVIEW OF SYSTEMS: A 12-point review of systems was done and was found to be negative unless stated in the history of present illness. PHYSICAL EXAMINATION: VITAL SIGNS: Temperature 99.0, pulse 82, respiratory rate 16, sat 98% on room air, and blood pressure 102/55. GENERAL: Awake, alert, and oriented x3. No distress. HEENT: Normocephalic and atraumatic. NECK: Supple. LUNGS: Clear. CARDIOVASCULAR: S1 and S2. No S3 or S4. ABDOMEN: Soft, positive bowel sounds. EXTREMITIES: Trace edema. SKIN: Warm and dry. LABORATORY DATA: Laboratory work was reviewed. CBCs, coags, chemistries were reviewed. Troponin was 1.4. EKG was reviewed. ASSESSMENT: 1. Elevated troponins: Likely demand ischemia from his gastrointestinal bleed. 2. Severe ischemic cardiomyopathy. 3. Presence of an automatic implantable cardioverter-defibrillator. 4. Status post coronary artery bypass grafting many years ago. 5. Chronic Plavix use. PLAN: 1. Discontinue Plavix indefinitely. Continue low-dose aspirin. 2. We would recommend against any scoping at this time. His EF is severely reduced and he has diffuse disease. 3. We would try to keep his hemoglobin above 10 at all times. We would give one more unit of blood and then give Lasix afterwards. 4. Should be able to be discharged home from the cardiac perspective tomorrow after blood transfusion has been given. 5. Follow up in the office in 1 month. Job ID: [id number]
--- NOTE | 2018-09-04 18:02 | PRG ---
DATE OF SERVICE: 09/04/2018 SUBJECTIVE: Mr. Pelletier is feeling okay. No abdominal pain. He had one more dark stool early yesterday evening which was smaller in volume. No bowel movements today. He is tolerating his diet. He had an echocardiogram which demonstrated ejection fraction of 10% to 15%. He did have some troponin elevation. Dr. Hewitt's impression is that this is due to demand ischemia. He has known diffuse coronary artery disease not amenable to percutaneous intervention. OBJECTIVE: GENERAL: No acute distress. HEART: Regular rate and rhythm. LUNGS: Clear to auscultation bilaterally. ABDOMEN: Soft and nontender to palpation. EXTREMITIES: No peripheral edema. LABORATORY STUDIES: Hemoglobin is stable at 9.2. BUN came down dramatically to 27. ASSESSMENT AND PLAN: 1. Melena, resolving. 2. Acute blood loss anemia, stabilized. 3. Severe systolic congestive heart failure. 4. Coronary artery disease with demand ischemia in the context of anemia. I discussed the case with the patient, also with Dr. Restrepo and Dr. Hewitt. The patient still declines any endoscopic investigation. Given the severity of his heart failure, he would actually be fairly high risk for the procedure, so we are still not going to plan on any endoscopic investigation. Treat empirically for suspected peptic ulcer disease with twice daily PPI. Thankfully, his hemoglobin appears to have stabilized and BUN has dropped dramatically, which all suggests that his bleeding has stopped. Plavix has been discontinued. GI will sign off at this time, but please call back anytime with questions or concerns. Job ID: [id number]
--- NOTE | 2018-09-04 21:30 | PDOC.PN ---
- Subjective Encounter Start Date: 09/04/18 Encounter Start Time: 12:00 Patient seen and examined for GI bleed. Had melena last night - small amt. No CP /syncope. No other complaints. No overnight events - Objective Resuscitation Status - Order Detail: 09/02/18 21:13 Resuscitation Status Routine Resuscitation Status: FULL: Full Resuscitation MAR Reviewed: Yes Vital Signs & Weight: Vital Signs (12 hours) Temp Pulse Pulse Resp BP BP Pulse Ox 09/04/18 19:21 97.4 F L 83 18 131/61 97 09/04/18 17:15 99.0 F 82 16 102/55 L 98 09/04/18 12:15 99.0 F 82 16 102/55 L 98 Weight Admit Weight 148 lb 3.2 oz Weight 147 lb I&O: 09/03/18 09/04/18 09/05/18 06:59 06:59 06:59 Intake Total 840 1520 966 Output Total 700 1000 1175 Balance 140 520 -209 Result Diagrams: 09/04/18 14:01 09/04/18 05:45 Additional Labs: Accuchecks 09/04/18 09/04/18 09/04/18 20:16 17:05 11:07 POC Glucose 116 H 181 H 125 H 09/04/18 06:04 POC Glucose 118 H Laboratory Tests 09/04/18 05:46 Troponin I 1.466 H* EKG Reviewed by me: Yes (Tele SR) Phys Exam - Physical Examination Constitutional: NAD Respiratory: no wheezing, no rhonchi Cardiovascular: RRR, no rub Gastrointestinal: soft, positive bowel sounds Musculoskeletal: no edema Neurological: non-focal, moves all 4 limbs Psychiatric: A&O x 3 Dx/Plan - Plan DVT proph w/SCDs IMPRESSION: 1. Gastrointestinal bleeding, probably secondary to peptic ulcer disease. 2. Acute blood loss anemia, status post 1 unit of PRBC. 3. Coronary artery disease, status post coronary artery bypass graft and stent placement 4. Diabetes mellitus, type 2. 5. Hypertension. 6. Hyperlipidemia. 7. History of transient ischemic attack. 8. History of renal calculi and cyst. 9. Chronic low back pain. 10. History of orthostatic hypotension. 11. Physical deconditioning. 12. Chronic kidney disease, stage 3. 13. Elevated troponin secondary to demand ischemia from anemia (type 2 NSTEMI). PLAN: Plavix dced Monitor HH Await Cardio input Echo Cont current meds ad below ASA 81 mg started this AM Patient refusing EGD. Transfuse PRN to maintain HH >10 per Cardiology Review of Systems - Review of Systems Respiratory: negative: Cough, Dry, Shortness of Breath, Hemoptysis, SOB with Excertion, Pleuritic Pain, Sputum, Wheezing Cardiovascular: negative: chest pain, palpitations, orthopnea, paroxysmal nocturnal dyspnea, edema, light headedness, other - Medications/Allergies Allergies/Adverse Reactions: Allergies Allergy/AdvReac Type Severity Reaction Status Date / Time No Known Drug Allergies Allergy Verified 08/09/18 16:34 Medications: Current Medications Acetaminophen (Tylenol) 650 mg PO Q4H PRN PRN Reason: Headache/Fever/Mild Pain (1-3) Aspirin (Ecotrin) 81 mg PO DAILY [facility] Last Admin: 09/04/18 08:06 Dose: 81 mg Dextrose/Water (Dextrose 50%) 25 gm SLOW IVP PRN PRN PRN Reason: Hypoglycemia Folic Acid (Folvite) 1 mg PO DAILY [facility] Last Admin: 09/04/18 08:06 Dose: 1 mg Furosemide (Lasix) 20 mg PO DAILY [facility] Glipizide (Glucotrol) 2.5 mg PO DAILY[facility] Glucagon (Glucagon) 1 mg IM PRN PRN PRN Reason: Hypoglycemia Dextrose/Water (D5w) 1,000 mls @ 0 mls/hr IV .Q0M PRN PRN Reason: Hypoglycemia Insulin Human Lispro (Humalog) 0 units SC .MILD SLIDING SCALE PRN PRN Reason: Mild Correctional Scale Metoprolol Tartrate (Lopressor) 12.5 mg PO BID [facility] Multivitamins (Theragran) 1 tab PO DAILY [facility] Last Admin: 09/04/18 08:06 Dose: 1 tab Ondansetron HCl (Zofran Odt) 4 mg PO Q6H PRN PRN Reason: Nausea/Vomiting Pantoprazole Sodium (Protonix) 40 mg IVP Q12HR [facility] Last Admin: 09/04/18 08:06 Dose: 40 mg Sodium Chloride (Normal Saline Pf) 10 ml FS PRN PRN PRN Reason: RECONSTITUTION Last Admin: 09/03/18 21:04 Dose: 10 ml Sodium Chloride (Flush - Normal Saline) 10 ml IVF PRN PRN PRN Reason: Saline Flush
[2018-09-04] MEDS: Metoprolol Tartrate 25 MG TAB PO SCH (21:38)
[2018-09-04] MEDS: Sodium Chloride 0.9% (PF) 10 ML VIAL FS PRN (21:38)
[2018-09-05 04:54] VITALS: TEMP 98
[2018-09-05] MEDS ORDERED: glipiZIDE 5 MG TAB PO SCH (07:30)
[2018-09-05 08:43] LABS: Hemoglobin 11.9 g/dL (14.0-18.0); Platelet Count 164 thou/uL (130-400)
[2018-09-05] MEDS ORDERED: Furosemide 20 MG TAB PO SCH (09:00)
[2018-09-05 09:06] LABS: Anion Gap 15 mmol/L (10-20); BUN (Urea Nitrogen) 21 mg/dL (8.4-25.7); Calc. Creatinine Clearance 33 mL/min (70-130); Calcium 9.7 mg/dL (7.8-10.44); Carbon Dioxide 21 mmol/L (23-31); Chloride 105 mmol/L (98-107); Estimated GFR-MDRD 40; Glucose 158 mg/dL (83-110); Magnesium 1.9 mg/dL (1.6-2.6); Potassium 4.4 mmol/L (3.5-5.1); Sodium 137 mmol/L (136-145)
[2018-09-05] MEDS: Metoprolol Tartrate 25 MG TAB PO SCH (09:56)
[2018-09-05] MEDS: Multivit, Therapeutic 1 TAB PO SCH (09:57)
[2018-09-05] MEDS: Aspirin 81 mg Enteric Coated Tablet PO SCH (09:57)
[2018-09-05] MEDS: Pantoprazole 40 MG VIAL IVP SCH (09:58)
[2018-09-05] MEDS: Folic Acid 1 MG TAB PO SCH (09:58)
[2018-09-05 11:53] VITALS: BP 109/59
--- NOTE | 2018-09-05 12:17 | PDOC.CTH ---
Cardiology Progress Note - Subjective No new issues. Received blood transfusion yesterday and Hgb up to 11.9 - Objective Vital Signs Temp Pulse Resp BP BP Pulse Ox 09/05/18 08:19 84 18 109/59 L 99 09/05/18 04:00 98.0 F 81 18 109/58 L 98 Admit Weight 148 lb 3.2 oz Weight 147 lb 09/04/18 09/05/18 09/06/18 06:59 06:59 06:59 Intake Total 1520 1466 Output Total 1000 2024 Balance 520 -559 - Physical Examination General/Neuro: alert & oriented x3, NAD Neck: no JVD present Lungs: CTA, unlabored respirations Heart: RRR Abdomen: NT/ND Extremities: other: (no edema) - Telemetry Telemetry Rhythm: NSR - Labs Result Diagrams: 09/05/18 08:28 09/05/18 08:28 Troponin/CKMB CK-MB (CK-2) 6.5 ng/mL (0-6.6) 09/04/18 05:46 Troponin I 1.466 ng/mL (< 0.028) H* 09/04/18 05:46 - Assessment/Plan 1. NSTEMI, demand ischemia 2. GI bleed. 3. Severe ischemic CM EF at 10-15% 4. S/P CABG. PLAN: - Continue medical therapy - Keep Hgb above 10 - May discharge any time from cardiac perspective. - Follow up in the office in 2 months.
--- NOTE | 2018-09-05 15:00 | DIS ---
DATE OF ADMISSION: 09/02/2018 DATE OF DISCHARGE: 09/05/2018 DISCHARGE DISPOSITION: Home. FOLLOWUP: 1. Follow up with primary care physician, Dr. Anjelica Ribeiro in 1 week. 2. Follow up with Dr. Nam Aldridge in 2 to 3 weeks. 3. Follow up with Cardiology, Dr. Hewitt in 2 to 3 weeks. Basic metabolic profile after 1 week is recommended. Primary care physician advised to follow. ALLERGIES: NO KNOWN DRUG ALLERGIES. THE PATIENT WAS SEEN AND EXAMINED ON THE DAY OF DISCHARGE. DENIES ANY NEW COMPLAINTS. NO CHEST PAIN, SHORTNESS OF BREATH, PALPITATIONS REPORTED. DISCHARGE MEDICATIONS: 1. Aspirin 81 mg daily. 2. Glipizide ER 2.5 mg daily. 3. Metoprolol succinate 50 mg daily. 4. Tylenol as needed. 5. Amlodipine 10 mg daily to be restarted once the blood pressure improves. 6. Tums as needed. 7. Folic acid 1 mg daily. 8. Isosorbide mononitrate 30 mg daily. 9. Multivitamin one tablet daily. 10. Protonix 40 mg twice a day. 11. Plavix has been discontinued per primary straddle bug driver, Dr. Claros. BRIEF HOSPITAL COURSE: The patient is an 83-year-old male with coronary artery disease, on aspirin, Plavix; and chronic systolic heart failure. Presented to the hospital with gastrointestinal bleeding and melena. Please refer to the history and physical for further details. The patient was admitted to the telemetry unit with a diagnosis of gastrointestinal bleeding. He was started on IV PPIs with gentle hydration. His H and H were closely monitored. He received a total of 2 units of PRBC to keep his hemoglobin more than 10 per Cardiology. Please note that the patient declined endoscopic evaluation. He did not have any new bleeding over the last 24 to 36 hours. He understands the risk of refusing the endoscopic evaluation. The patient was also found to have elevated troponin, maximum of 1.46, probably secondary to demand ischemia. An echocardiogram was obtained that showed ejection fraction of 10% to 15% with grade 2/3 diastolic dysfunction, moderate tricuspid regurgitation, and mild mitral regurgitation. The patient was evaluated by Cardiology, Dr. Hewitt. He recommended to transfuse to keep the hemoglobin more than 10. The patient has been restarted on aspirin as of yesterday. He did not have any recurrence of bleeding. The patient is requesting to be discharged today. He was advised to monitor his blood pressure on a daily basis and to only start with Toprol-XL for now. He was advised to add Imdur followed by amlodipine later on once his blood pressure improves. Fall precaution was emphasized. Home health care was recommended, however, the patient declined. The patient is at high risk of complications due to refusal of the appropriate testing and treatment. FINAL DIAGNOSES: 1. Gastrointestinal bleeding probably secondary to peptic ulcer disease. Please note that the patient refused EGD. 2. Acute blood loss anemia, requiring 2 units of PRBC. 3. Coronary artery disease, status post CABG along with stent placement in the past. Please note that Plavix has been discontinued after confirming with his primary straddle bug driver, Dr. Claros. He will continue 81 mg of aspirin. 4. Diabetes mellitus type 2. 5. Hypertension. 6. Hyperlipidemia. 7. History of transient ischemic attack. 8. History of renal calculi and renal cyst. 9. Chronic low back pain. 10. History of orthostatic hypotension in the past. 11. Physical deconditioning. 12. Chronic kidney disease, stage 3. 13. Elevated troponin secondary to demand ischemia from anemia (type 2 nlv-TL-mneyumami myocardial infarction). 14. Mild acute kidney injury on the day of discharge with creatinine 1.64 from 1.2. The patient refused to stay in the hospital overnight. He will benefit from repeat labs next week. He was advised to avoid nephrotoxic agent. Job ID: [id number]
== END 2018-09-05 13:20 | disposition home or self-care (01) | DRG 377 ==
LOC: ERS 17:45 → 2NO 19:00
PROVIDERS: ADMIT Hospitalist; ATTEND Hospitalist
PROC: 30233N1 Transfusion of Nonautologous Red Blood Cells into Peripheral Vein, Percutaneous Approach (ICD-10-PCS; principal; 2018-09-03)
PROC: 30233N1 Transfusion of Nonautologous Red Blood Cells into Peripheral Vein, Percutaneous Approach (ICD-10-PCS; 2018-09-04)
DX: K27.4 Chronic or unspecified peptic ulcer, site unspecified, with hemorrhage (principal); I21.A1 Myocardial infarction type 2; D62 Acute posthemorrhagic anemia; I13.0 Hypertensive heart and chronic kidney disease with heart failure and stage 1 through stage 4 chronic kidney disease, or unspecified chronic kidney disease; I50.22 Chronic systolic (congestive) heart failure; N17.9 Acute kidney failure, unspecified; N18.3 Chronic kidney disease, stage 3 (moderate); E11.22 Type 2 diabetes mellitus with diabetic chronic kidney disease; M54.5 Low back pain; I25.10 Atherosclerotic heart disease of native coronary artery without angina pectoris; I25.5 Ischemic cardiomyopathy; I34.0 Nonrheumatic mitral (valve) insufficiency; I07.1 Rheumatic tricuspid insufficiency; Z85.46 Personal history of malignant neoplasm of prostate; M19.90 Unspecified osteoarthritis, unspecified site; Z86.73 Personal history of transient ischemic attack (TIA), and cerebral infarction without residual deficits; Z87.442 Personal history of urinary calculi; Z96.641 Presence of right artificial hip joint; Z95.1 Presence of aortocoronary bypass graft; Z87.891 Personal history of nicotine dependence; Z79.84 Long term (current) use of oral hypoglycemic drugs; Z79.82 Long term (current) use of aspirin; Z79.899 Other long term (current) drug therapy; Z95.5 Presence of coronary angioplasty implant and graft; Z95.810 Presence of automatic (implantable) cardiac defibrillator; Z79.02 Long term (current) use of antithrombotics/antiplatelets
CPT/HCPCS: 36415; 36416; 36430; 80048; 80053; 82553; 83735; 84484; 85014; 85018; 85049; 86850; 86900; 86901; 93005; 93010; 93306; 94760; 96365; 96366; C9113; J1940; J7050; P9016

== ENCOUNTER 2018-10-31 16:17 | Emergency (ER) | payer MEDICARE ==
[2018-10-31 17:49] LABS: CKMB 1.9 ng/mL (0-6.6)
--- NOTE | 2018-11-03 02:25 | EKG ---
Test Reason : Blood Pressure : / mmHG Vent. Rate : 083 BPM Atrial Rate : 104 BPM P-R Int : 000 ms QRS Dur : 124 ms QT Int : 442 ms P-R-T Axes : 000 -64 151 degrees QTc Int : 519 ms Atrial fibrillation Right bundle branch block Left anterior fascicular block Bifascicular block Possible Lateral infarct , age undetermined Marked ST abnormality, possible septal subendocardial injury Abnormal ECG Unchanged from prior Confirmed by JSOEPH GARCIA, PAVAN ([id number]), editor index ELIZABETH BAUER ([id number]) on 11/03/2018 2:25:27 AM Referred By: Confirmed By:PAVAN RUIZ MD
== END 2018-10-31 17:31 | disposition home or self-care (01) ==
LOC: ERS 16:17
DX: I11.0 Hypertensive heart disease with heart failure (principal); I50.9 Heart failure, unspecified; I25.2 Old myocardial infarction; E11.9 Type 2 diabetes mellitus without complications; E78.5 Hyperlipidemia, unspecified; F17.210 Nicotine dependence, cigarettes, uncomplicated; Z79.899 Other long term (current) drug therapy; Z79.82 Long term (current) use of aspirin; Z79.84 Long term (current) use of oral hypoglycemic drugs
CPT/HCPCS: 82553; 84484; 93005; 99285; C1776; 36415